=== PATIENT | female | born 1975 | race Caucasian/White ===

== ENCOUNTER 2019-03-13 00:10 | Emergency (ER) | payer BC, OTHER ==
[2019-03-13] MEDS ORDERED: Albuterol/Ipratropium 3.0-0.5 MG/3 ML Neb Soln NEB ONE (00:55)
--- NOTE | 2019-03-13 01:03 | EDM.PDOC ---
ED HPI GENERAL MEDICAL PROBLEM - General Chief Complaint: Respiratory Problem Stated Complaint: SOB COUGH Time Seen by Provider: 03/13/19 00:45 Source of Information: Reports: Patient History Limitations: Reports: No Limitations - History of Present Illness INITIAL COMMENTS - FREE TEXT/NARRATIVE: TRIAGE NOTE -- pt has had dry, non productive cough for one week. feels SOB with activity. no fever or chills. [ End ] There is been no fever reported. The patient has noted wheezing. She has a history of asthma. She has used her "rescue inhaler" several times in the past week or so. She also reports orthopnea. She has had progressive orthopnea for at least a week perhaps more and now cannot sleep lying down in bed. No chest pain. No other symptoms of acute illness. Risk factors consist of severe obesity, hypertension, diabetes, asthma. She is also a cigarette smoker. - Related Data Allergies Allergy/AdvReac Type Severity Reaction Status Date / Time No Known Allergies Allergy Verified 03/13/19 00:51 Home Meds: Home Meds Budesonide/Formoterol Fumarate [Symbicort 160-4.5 Mcg Inhaler] 6 gm IH BID 03/13 [History] Metoprolol Succinate [Toprol Xl] 125 mg PO DAILY 03/13/19 [History] Simvastatin [Zocor] 10 mg PO BEDTIME 03/13/19 [History] metFORMIN HCl [Metformin HCl] 2,000 mg PO DAILY 03/13/19 [History] Past Medical History Cardiovascular History: Reports: High Cholesterol, Hypertension Respiratory History: Reports: Asthma Endocrine/Metabolic History: Reports: Diabetes, Type II Social & Family History - Tobacco Use Smoking Status *Q: Current Every Day Smoker Second Hand Smoke Exposure: No - Caffeine Use Caffeine Use: Reports: Coffee ED ROS GENERAL - Review of Systems Review Of Systems: Comprehensive ROS is negative, except as noted in HPI. ED EXAM, GENERAL - Physical Exam Exam: See Below Exam Limited By: No Limitations General Appearance: Alert, WD/WN Eye Exam: Bilateral Eye: EOMI, PERRL Ears: Normal External Exam Nose: Normal Inspection Throat/Mouth: Normal Inspection Head: Atraumatic, Normocephalic Neck: Normal Inspection, Supple, Other (No JVD or hepatojugular reflux) Respiratory/Chest: No Respiratory Distress, Decreased Breath Sounds, Wheezing ( Some wheezes are heard anteriorly after the patient has collin down), Other ( Somewhat coarse breath sounds and slight rhonchi provoked by cough) Cardiovascular: Regular Rate, Rhythm GI/Abdominal: Soft, Non-Tender Back Exam: Normal Inspection Extremities: Normal Inspection Neurological: Alert, Oriented Psychiatric: Normal Affect, Normal Mood Skin Exam: Warm, Dry Course - Vital Signs Last Recorded V/S: Last Vital Signs Temp 36.3 C 03/13/19 00:23 Pulse 80 03/13/19 00:23 Resp 20 03/13/19 00:23 BP 144/117 H 03/13/19 00:23 Pulse Ox 95 03/13/19 00:23 - Orders/Labs/Meds Orders: Active Orders 24 hr Category Date Time Status EKG Documentation Completion [RC] STAT Care 03/13/19 00:52 Active RT Aerosol Therapy [RC] ASDIRECTED Care 03/13/19 00:55 Active Chest 1V Frontal [CR] Stat Exams 03/13/19 00:52 Taken CULTURE BLOOD [BC] Stat Lab 03/13/19 01:15 Received CULTURE BLOOD [BC] Stat Lab 03/13/19 01:24 Received HCG QUALITATIVE,URINE [URCHEM] Stat Lab 03/13/19 00:52 Ordered UA RFX AMARILIS AND CULT IF INDIC [URIN] Stat Lab 03/13/19 00:52 Ordered Heparin Sodium/D5W [Heparin 25,000 Units in D5W 500 ML] Med 03/13/19 02:45 Active 25,000 units in 500 ml IV TITRATE Blood Culture x2 Reflex Set [OM.PC] Stat Oth 03/13/19 00:52 Ordered Medication Orders Heparin Sodium/Dextrose (Heparin 25,000 Units In D5w 500 Ml) 25,000 units in 500 mls @ 30.155 mls/hr IV TITRATE LUIS MIGUEL; Protocol Last Admin: 03/13/19 02:50 Dose: 12 units/kg/hr, 30.155 mls/hr Labs: Laboratory Tests 03/13/19 03/13/19 03/13/19 Range/Units 01:15 01:15 01:15 WBC 12.49 H (3.98-10.04) K/mm3 RBC 4.60 (3.98-5.22) M/mm3 Hgb 13.7 (11.2-15.7) gm/dl Hct 41.0 (34.1-44.9) % MCV 89.1 (79.4-94.8) fl MCH 29.8 (25.6-32.2) pg MCHC 33.4 (32.2-35.5) g/dl RDW Std Deviation 45.5 (36.4-46.3) fL Plt Count 229 (182-369) K/mm3 MPV 11.8 (9.4-12.3) fl Neut % (Auto) 68.4 (34.0-71.1) % Lymph % (Auto) 22.6 (19.3-51.7) % Ramsey % (Auto) 5.8 (4.7-12.5) % Eos % (Auto) 2.8 (0.7-5.8) Baso % (Auto) 0.2 (0.1-1.2) % Neut # (Auto) 8.54 H (1.56-6.13) K/mm3 Lymph # (Auto) 2.82 (1.18-3.74) K/mm3 Ramsey # (Auto) 0.73 H (0.24-0.36) K/mm3 Eos # (Auto) 0.35 (0.04-0.36) K/mm3 Baso # (Auto) 0.03 (0.01-0.08) K/mm3 Manual Slide Review Normal smear PT 9.8 (9.7-12.0) SECONDS INR < 0.93 APTT 26 (22-31) SECONDS D-Dimer, Quantitative 0.37 (0.19-0.50) mg/L Sodium 140 (136-145) mEq/L Potassium 4.1 (3.5-5.1) mEq/L Chloride 103 (98-107) mEq/L Carbon Dioxide 25 (21-32) mEq/L Anion Gap 16.1 H (5-15) BUN 11 (7-18) mg/dL Creatinine 0.8 (0.55-1.02) mg/dL Est Cr Clr Drug Dosing 87.27 mL/min Estimated GFR (MDRD) > 60 (>60) mL/min BUN/Creatinine Ratio 13.8 L (14-18) Glucose 156 H (74-106) mg/dL Calcium 9.1 (8.5-10.1) mg/dL Magnesium 1.5 L (1.8-2.4) mg/dl Total Bilirubin 0.3 (0.2-1.0) mg/dL AST 15 (15-37) U/L ALT 23 (14-59) U/L Alkaline Phosphatase 59 (46-116) U/L Troponin I 0.358 H* (0.00-0.056) ng/mL NT-Pro-B Natriuret Pep (0-125) pg/mL Total Protein 7.0 (6.4-8.2) g/dl Albumin 3.3 L (3.4-5.0) g/dl Globulin 3.7 gm/dL Albumin/Globulin Ratio 0.9 L (1-2) 03/13/19 Range/Units 01:15 WBC (3.98-10.04) K/mm3 RBC (3.98-5.22) M/mm3 Hgb (11.2-15.7) gm/dl Hct (34.1-44.9) % MCV (79.4-94.8) fl MCH (25.6-32.2) pg MCHC (32.2-35.5) g/dl RDW Std Deviation (36.4-46.3) fL Plt Count (182-369) K/mm3 MPV (9.4-12.3) fl Neut % (Auto) (34.0-71.1) % Lymph % (Auto) (19.3-51.7) % Ramsey % (Auto) (4.7-12.5) % Eos % (Auto) (0.7-5.8) Baso % (Auto) (0.1-1.2) % Neut # (Auto) (1.56-6.13) K/mm3 Lymph # (Auto) (1.18-3.74) K/mm3 Ramsey # (Auto) (0.24-0.36) K/mm3 Eos # (Auto) (0.04-0.36) K/mm3 Baso # (Auto) (0.01-0.08) K/mm3 Manual Slide Review PT (9.7-12.0) SECONDS INR APTT (22-31) SECONDS D-Dimer, Quantitative (0.19-0.50) mg/L Sodium (136-145) mEq/L Potassium (3.5-5.1) mEq/L Chloride (98-107) mEq/L Carbon Dioxide (21-32) mEq/L Anion Gap (5-15) BUN (7-18) mg/dL Creatinine (0.55-1.02) mg/dL Est Cr Clr Drug Dosing mL/min Estimated GFR (MDRD) (>60) mL/min BUN/Creatinine Ratio (14-18) Glucose (74-106) mg/dL Calcium (8.5-10.1) mg/dL Magnesium (1.8-2.4) mg/dl Total Bilirubin (0.2-1.0) mg/dL AST (15-37) U/L ALT (14-59) U/L Alkaline Phosphatase (46-116) U/L Troponin I (0.00-0.056) ng/mL NT-Pro-B Natriuret Pep 1246 H (0-125) pg/mL Total Protein (6.4-8.2) g/dl Albumin (3.4-5.0) g/dl Globulin gm/dL Albumin/Globulin Ratio (1-2) Meds: Medications Generic Name Dose Route Start Last Admin Trade Name Freq PRN Reason Stop Dose Admin Heparin Sodium/Dextrose 25,000 units in 500 mls @ 30.155 mls/hr 03/13/19 02: 45 03/13/19 02:50 Heparin 25,000 Units In D5w 500 Ml IV 12 units/kg/hr TITRATE LUIS MIGUEL 30.155 mls/hr Administration Protocol 12 UNITS/KG/HR Discontinued Medications Generic Name Dose Route Start Last Admin Trade Name Freq PRN Reason Stop Dose Admin Albuterol/Ipratropium 3 ml 03/13/19 00:55 03/13/19 01:16 Duoneb 3.0-0.5 Mg/3 Ml NEB 03/13/19 00:56 3 ml ONETIME ONE Administration Aspirin 324 mg 03/13/19 02:37 03/13/19 02:47 Aspirin PO 03/13/19 02:38 324 mg ONETIME ONE Administration Furosemide 40 mg 03/13/19 02:40 03/13/19 02:47 Lasix IVPUSH 03/13/19 02:41 40 mg NOW ONE Administration Heparin Sodium (Porcine) 4,000 units 03/13/19 02:38 03/13/19 02:49 Heparin Sodium IVPUSH 03/13/19 02:39 4,000 units .BOLUS ONE Administration - Re-Assessments/Exams Free Text/Narrative Re-Assessment/Exam: 03/13/19 03:02 The patient has been evaluated for shortness of breath and progressive orthopnea. She is noted to have a mild sinus tachycardia with frequent PVCs. There are no acute ST changes. No ST elevations. Low voltage as expected as she is severely obese. Chest x-ray is suboptimal with poor inspiration likely atelectasis right lower lobe probable cardiomegaly no focal infiltrate is identified. In laboratory evaluation the BNP is elevated to the 1200 range and troponin is a little over 0.3. Discussed with cardiology and hospitalist at [place] and [place]. Program Therapist is Dr. Pierce and hospitalist is Dr. Pelletier. Patient is accepted in transfer. She is being heparinized. Lasix is being administered. Aspirin has been given. Program Therapist recommended not adding a platelet aggregation inhibitor such as Plavix. Departure - Departure Time of Disposition: 03:05 Disposition: DC/Tfer to Acute Hospital 02 Clinical Impression: Non-STEMI (non-ST elevated myocardial infarction), Severe obesity (BMI >= 40), Non-insulin dependent type 2 diabetes mellitus, Orthopnea, Elevated brain natriuretic peptide (BNP) level Hypertension Qualifiers: Hypertension type: unspecified Qualified Code(s): I10 - Essential (primary) hypertension - Discharge Information Sepsis Event Note - Evaluation Sepsis Screening Result: No Definite Risk - Focused Exam Vital Signs: Vital Signs Temp Pulse Resp BP Pulse Ox 03/13/19 00:23 36.3 C 80 20 144/117 H 95 Date Exam was Performed: 03/13/19 Time Exam was Performed: 03:02 - My Orders Last 24 Hours: My Active Orders 03/13/19 00:52 EKG Documentation Completion [RC] STAT Chest 1V Frontal [CR] Stat HCG QUALITATIVE,URINE [URCHEM] Stat UA RFX AMARILIS AND CULT IF INDIC [URIN] Stat Blood Culture x2 Reflex Set [OM.PC] Stat 03/13/19 00:55 RT Aerosol Therapy [RC] ASDIRECTED 03/13/19 01:15 CULTURE BLOOD [BC] Stat 03/13/19 01:24 CULTURE BLOOD [BC] Stat 03/13/19 02:45 Heparin Sodium/D5W [Heparin 25,000 Units in D5W 500 ML] 25,000 units in 500 ml IV TITRATE - Assessment/Plan Last 24 Hours: My Active Orders 03/13/19 00:52 EKG Documentation Completion [RC] STAT Chest 1V Frontal [CR] Stat HCG QUALITATIVE,URINE [URCHEM] Stat UA RFX AMARILIS AND CULT IF INDIC [URIN] Stat Blood Culture x2 Reflex Set [OM.PC] Stat 03/13/19 00:55 RT Aerosol Therapy [RC] ASDIRECTED 03/13/19 01:15 CULTURE BLOOD [BC] Stat 03/13/19 01:24 CULTURE BLOOD [BC] Stat 03/13/19 02:45 Heparin Sodium/D5W [Heparin 25,000 Units in D5W 500 ML] 25,000 units in 500 ml IV TITRATE
[2019-03-13] MEDS ORDERED: Aspirin 81 MG Tab.Chew PO ONE (02:37)
[2019-03-13] MEDS ORDERED: Heparin Sodium 5,000 Units/ML Vial IVPUSH ONE (02:38)
[2019-03-13] MEDS ORDERED: Furosemide 40 MG/4 ML VIAL IVPUSH ONE (02:40)
[2019-03-13] MEDS ORDERED: Heparin Sodium/D5W 25,000 UNITS/500 ML BAG IV SCH (02:45)
--- NOTE | 2019-03-13 07:16 | CR ---
Chest: Portable view of the chest was obtained. Comparison: Prior chest x-ray of 05/16/13. Heart size and mediastinum are normal. Lungs are clear. Bony structures are grossly intact. Impression: 1. Nothing acute is seen on portable chest x-ray. Diagnostic code #1 This report was dictated in [place] Standard Time
== END 2019-03-13 03:10 ==
LOC: JD.ED 00:10
DX: I21.4 Non-ST elevation (NSTEMI) myocardial infarction (principal); E11.9 Type 2 diabetes mellitus without complications; I10 Essential (primary) hypertension; R79.1 Abnormal coagulation profile; R06.01 Orthopnea; E66.9 Obesity, unspecified; Z68.41 Body mass index [BMI] 40.0-44.9, adult; E78.00 Pure hypercholesterolemia, unspecified; J45.909 Unspecified asthma, uncomplicated; F17.210 Nicotine dependence, cigarettes, uncomplicated; Z79.84 Long term (current) use of oral hypoglycemic drugs; Z79.899 Other long term (current) drug therapy
CPT/HCPCS: 36415; 71045; 80053; 83735; 83880; 84484; 85025; 85379; 85610; 85730; 87040; 93005; 94640; 96365; 96375; 99285; A9270; J1644; J1940; 93010; J7620-GY